=== PATIENT | female | born 2000 | race Caucasian/White ===

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

== ENCOUNTER 2018-09-01 16:44 | Emergency (ER) | payer OTHER ==
[2018-09-01 18:19] LABS: APPEARANCE, URINE HAZY (CLEAR); BACTERIA, URINE AUTO NEGATIVE (NEGATIVE); BILIRUBIN, URINE AUTO NEGATIVE (NEGATIVE); BLOOD, URINE BLOOD NEGATIVE (NEGATIVE); COLOR, URINE YELLOW (YELLOW); GLUCOSE, URINE (UA) AUTO NEGATIVE (NEGATIVE); KETONE, URINE AUTO NEGATIVE (NEGATIVE); LEUKOCYTE ESTERASE, URINE AUTO NEGATIVE (NEGATIVE); MUCUS, URINE SMALL (NEGATIVE); NITRITE, URINE AUTO NEGATIVE (NEGATIVE); PROTEIN, URINE AUTO NEGATIVE (NEGATIVE); RBC, URINE AUTO 3 /HPF (0-3); SPECIFIC GRAVITY URINE AUTO 1.021 (1.002-1.035); SQUAMOUS EPITHELIAL CELL UR AU 4 /HPF (0-6); UROBILINOGEN, URINE AUTO 0.2 mg/dL (0.0-2.0); WBC, URINE AUTO 1 /HPF (0-3)
[2018-09-01 18:51] LABS: CONTROL LINE UCG INT CTR LINE PRESENT; URINE PREG TEST NEGATIVE (NEGATIVE)
[2018-09-01] MEDS: NS 1,000 ML IV (19:00)
[2018-09-01] MEDS: KETOROLAC 30 MG/ML VIAL (J1885) IV (19:00)
[2018-09-01] MEDS: ONDANSETRON 4MG/2ML VIAL (J2405) IV (19:00)
[2018-09-01 19:01] LABS: BASO # 0.1 10^3/uL (0.0-0.2); BASO % 0.5 % (0.0-1.0); EOS # 0.3 10^3/uL (0.0-0.50); EOS % 2.7 % (0.0-3.0); HEMATOCRIT 42.2 % (36.0-47.0); HEMOGLOBIN 14.2 g/dl (12.0-15.5); IMMATURE GRANULOCYTE % 0.4 % (0-3.0); LYMPH # 2.7 10^3/uL (1.5-6.5); LYMPH % 27.5 % (24.0-44.0); MEAN CORPUSCULAR HEMOGLOBIN 28.7 pg (27.0-33.0); MEAN CORPUSCULAR HGB CONC 33.6 g/dl (32.0-36.5); MEAN CORPUSCULAR VOLUME 85.4 fl (80.0-96.0); MONO # 0.7 10^3/uL (0.0-0.8); MONO % 7.1 % (0.0-5.0); NEUTROPHILS % 61.8 % (36.0-66.0); RED BLOOD COUNT 4.94 10^6/uL (4.00-5.40); WHITE BLOOD COUNT 9.7 10^3/uL (4.0-10.0)
[2018-09-01 19:15] LABS: CONTROL LINE HCG INT CTR LINE PRESENT; HCG, SERUM QUALITATIVE NEGATIVE (NEGATIVE)
[2018-09-01 19:26] LABS: POS COUNT POS FLAG
[2018-09-01 19:28] LABS: ALBUMIN 3.8 GM/DL (3.2-5.2); ALBUMIN/GLOBULIN RATIO 1.15 (1.00-1.93); ALKALINE PHOSPHATASE 87 U/L (45-117); ALT/SGPT 47 U/L (12-78); ANION GAP 7 MEQ/L (8-16); AST/SGOT 25 U/L (7-37); BILIRUBIN,TOTAL 0.3 MG/DL (0.2-1.0); BLOOD UREA NITROGEN 12 MG/DL (7-18); CALCIUM LEVEL 9.2 MG/DL (8.5-10.1); CARBON DIOXIDE LEVEL 25 MEQ/L (21-32); CHLORIDE LEVEL 108 MEQ/L (98-107); CREATININE FOR GFR 0.67 MG/DL (0.55-1.30); GLUCOSE, FASTING 93 MG/DL (70-100); LIPASE 95 U/L (73-393); POTASSIUM SERUM 4.2 MEQ/L (3.5-5.1); SODIUM LEVEL 140 MEQ/L (136-145); TOTAL PROTEIN 7.1 GM/DL (6.4-8.2)
[2018-09-01] MEDS: metroNIDAZOLE (FLAGYL) 500 MG TAB PO (21:01)
[2018-09-01 22:02] LABS: CHLAMYDIA DNA AMPLIFICATION NEGATIVE (NEGATIVE); GC DNA AMPLIFICATION NEGATIVE (NEGATIVE)
== END 2018-09-01 21:04 | disposition home or self-care (01) ==
LOC: M ED 16:44
DX: N76.0 Acute vaginitis (principal); N83.201 Unspecified ovarian cyst, right side; N83.202 Unspecified ovarian cyst, left side; T83.32XA Displacement of intrauterine contraceptive device, initial encounter; X58.XXXA Exposure to other specified factors, initial encounter; Y92.89 Other specified places as the place of occurrence of the external cause; N94.10 Unspecified dyspareunia; I10 Essential (primary) hypertension; G93.5 Compression of brain; Z79.899 Other long term (current) drug therapy; Z88.1 Allergy status to other antibiotic agents; Z88.8 Allergy status to other drugs, medicaments and biological substances
CPT/HCPCS: J2405

== ENCOUNTER 2018-10-04 10:24 | Emergency (ER) | payer OTHER ==
[~2018-10-04] VITALS: Ht 165.1 cm; Wt 111.8 kg
[~2018-10-04 10:24] MED LIST changes: +FLAG500T PO; +HYDR12CA; +KETO10TAB PO; +LISI10TA4; +METO1TAB32 PO; -METO25TA74 PO; +MIRE1IUD
[2018-10-04 11:30] VITALS: BP 116/65
[2018-10-04] MEDS ORDERED: KETOROLAC 60 MG/2 ML VIAL (J1885) IM ONE (11:30)
[2018-10-04] MEDS ORDERED: METHOCARBAMOL 500 MG TAB PO ONE (11:30)
[2018-10-04] MEDS ORDERED: NAPR-885 PO (11:52)
[2018-10-04] MEDS ORDERED: ROBA500T PO (11:52)
--- NOTE | 2018-10-04 13:00 | REP ---
Lumbar spine series: Five views. History: Pain after fall. Comparison study: February 10, 2017. Findings: The patient has a lumbar peritoneal shunt catheter which remains in place unchanged and intact. Lumbar vertebral body heights are preserved. Alignment is normal. Pedicles and posterior elements are intact. There is straightening of the normal lumbar lordosis. No fracture or collapse is seen. Impression: No traumatic abnormality noted. Lumbar peritoneal shunt catheter remains in place unchanged and intact. Electronically Signed by Lorenzo Naranjo MD 10/04/2018 07:38 P
--- NOTE | 2018-10-04 15:00 | REP ---
THORACIC SPINE, THREE VIEWS: HISTORY: Fall. There is no acute fracture or subluxation. The intervertebral discs are normal in height. IMPRESSION:There is no acute fracture or subluxation. Electronically Signed by Micheal Sparks MD 10/04/2018 02:35 P
== END 2018-10-04 12:02 | disposition home or self-care (01) ==
LOC: M ED 10:24
DX: M54.9 Dorsalgia, unspecified (principal); W01.0XXA Fall on same level from slipping, tripping and stumbling without subsequent striking against object, initial encounter; Y92.019 Unspecified place in single-family (private) house as the place of occurrence of the external cause
CPT/HCPCS: 72072; 72110; 81025; 96372; 99284; J1885

== ENCOUNTER 2018-11-11 19:36 | Emergency (ER) | payer OTHER ==
[~2018-11-11] VITALS: Ht 165.1 cm; Wt 113.6 kg
[~2018-11-11 19:36] MED LIST changes: -DICY20TA PO; -DICY20TA11 PO; -HYDR12CA PO; -LISI10TA4 PO; -MACR100C43 PO; -MELO7.5T7; -MOBI4TAB PO; -REGL10TA6 PO; -TIZA-208 PO; -TIZANIDINE
[2018-11-11] MEDS ORDERED: MACR100C43 PO (19:45)
[2018-11-11] MEDS ORDERED: ONDANSETRON 4 MG ORAL DISINTEGRATING TAB (Q0162 PER 1MG) PO ONE ×2 (20:15→23:45)
[2018-11-11] MEDS ORDERED: NS 1,000 ML IV ONE (20:45)
[2018-11-11] MEDS ORDERED: ONDANSETRON 4MG/2ML VIAL (J2405) IV ONE (20:45)
[2018-11-11] MEDS: MORPHINE 4 MG/ML 1ML VIAL/SYRINGE (J2270) IV PRN ×2 (21:28→22:05)
[2018-11-11 21:29] LABS: BASO # 0.1 10^3/uL (0.0-0.2); BASO % 0.4 % (0.0-1.0); EOS # 0.1 10^3/uL (0.0-0.50); EOS % 0.7 % (0.0-3.0); LYMPH # 2.5 10^3/uL (1.5-6.5); LYMPH % 15.1 % (24.0-44.0); MEAN CORPUSCULAR HEMOGLOBIN 28.5 pg (27.0-33.0); MEAN CORPUSCULAR HGB CONC 34.1 g/dl (32.0-36.5); MEAN CORPUSCULAR VOLUME 83.7 fl (80.0-96.0); MONO # 1.2 10^3/uL (0.0-0.8); MONO % 7.1 % (0.0-5.0); NEUTROPHILS # 12.5 10^3/uL (1.8-7.7); NEUTROPHILS % 76.2 % (36.0-66.0); PLATELET COUNT, AUTOMATED 258 10^3/uL (150-450); RED BLOOD COUNT 5.26 10^6/uL (4.00-5.40); WHITE BLOOD COUNT 16.4 10^3/uL (4.0-10.0)
[2018-11-11 22:08] LABS: ALBUMIN 4.1 GM/DL (3.2-5.2); ALT/SGPT 33 U/L (12-78); BILIRUBIN,DIRECT 0.1 MG/DL (0.0-0.2); BILIRUBIN,TOTAL 0.6 MG/DL (0.2-1.0); BLOOD UREA NITROGEN 12 MG/DL (7-18); CALCIUM LEVEL 9.2 MG/DL (8.5-10.1); CARBON DIOXIDE LEVEL 21 MEQ/L (21-32); CHLORIDE LEVEL 106 MEQ/L (98-107); GLUCOSE, FASTING 99 MG/DL (70-100); LIPASE 57 U/L (73-393); POTASSIUM SERUM 4.2 MEQ/L (3.5-5.1); SODIUM LEVEL 140 MEQ/L (136-145); TOTAL PROTEIN 7.4 GM/DL (6.4-8.2)
[2018-11-11] MEDS ORDERED: ISOVUE-370 76% 100ML VIAL (Q9967) As Ordered ONE (22:11)
--- NOTE | 2018-11-11 23:12 | REPVR ---
EXAM: CT Abdomen and Pelvis With Contrast EXAM DATE/TIME: 11/11/2018 10:13 PM CLINICAL HISTORY: 18 years old, female; Pain; Abdominal pain; Generalized; Additional info: Lower abdominal pain TECHNIQUE: Axial computed tomography images of the abdomen and pelvis with intravenous contrast. All CT scans at this facility use at least one of these dose optimization techniques: automated exposure control; mA and/or kV adjustment per patient size (includes targeted exams where dose is matched to clinical indication); or iterative reconstruction. Coronal and sagittal reformatted images were created and reviewed. CONTRAST: Contrast Material: 100 ml of isovue 370; Contrast Route: iv COMPARISON: CT ABD PELVIS WITH CONTRAST 05/12/2016 11:05 AM FINDINGS: Tubes, catheters and devices: Spinal stimulator wire demonstrated in the lumbar intradural space. Lower thorax: No acute findings. ABDOMEN: Liver: There is a diffuse decrease in hepatic parenchymal density, consistent with fatty infiltration. Gallbladder and bile ducts: Normal. No calcified stones. No ductal dilation. Pancreas: Normal. No ductal dilation. Spleen: There is mild nonspecific splenomegaly. Adrenals: Bilateral adrenal hyperplasia. Kidneys and ureters: Normal. No hydronephrosis. Stomach and bowel: Normal. No obstruction. No mucosal thickening. Appendix: No evidence of appendicitis. PELVIS: Bladder: Unremarkable as visualized. Reproductive: Unremarkable as visualized. ABDOMEN and PELVIS: Intraperitoneal space: Free fluid in the cul-de-sac likely physiologic. Bones/joints: No acute fracture. No dislocation. Soft tissues: Unremarkable. Vasculature: Normal. No abdominal aortic aneurysm. Lymph nodes: Normal. No enlarged lymph nodes. IMPRESSION: 1. There is mild nonspecific splenomegaly. Spleen measures 14.5 cm. No focal abnormality. 2. There is a diffuse decrease in hepatic parenchymal density, consistent with fatty infiltration. 3. No acute findings. Electronically signed by: Johan Gardiner On 11/11/2018 23:11:43 PM
[2018-11-11] MEDS ORDERED: MORPHINE 4 MG/ML 1ML VIAL/SYRINGE (J2270) IV ONE (23:15)
[2018-11-11] MEDS ORDERED: OXYCODONE/APAP 5MG/325MG(BULK FOR ED) 1 TABLET PO ONE (23:45)
[2018-11-12 00:01] VITALS: BP 143/100
[2018-11-12] MEDS ORDERED: DICY20TA11 PO (17:33)
[2018-11-12] MEDS ORDERED: REGL10TA6 PO (17:33)
[2018-11-12] MEDS ORDERED: KETO10TAB PO (17:33)
== END 2018-11-12 00:06 | disposition home or self-care (01) ==
LOC: M ED 19:36
DX: M54.9 Dorsalgia, unspecified (principal); I10 Essential (primary) hypertension; G93.2 Benign intracranial hypertension; H47.11 Papilledema associated with increased intracranial pressure; Z79.899 Other long term (current) drug therapy; Z88.1 Allergy status to other antibiotic agents; Z88.0 Allergy status to penicillin; Z88.8 Allergy status to other drugs, medicaments and biological substances
CPT/HCPCS: 74177; 80048; 80076; 81001; 81025; 83690; 85025; 96374; 96375; 96376; 99284; J2270; J2405; Q0162; Q9967

== ENCOUNTER → 2018-11-11 | Outpatient (REF) | payer OTHER ==
[~2018-11-11] MED LIST changes: +DICY20TA PO; +DICY20TA11 PO; +HYDR12CA PO; +LISI10TA4 PO; +MACR100C43 PO; +MELO7.5T7; +MOBI4TAB PO; +NAPR-885 PO; +REGL10TA6 PO; +ROBA500T PO; +TIZA-208 PO; +TIZANIDINE
[2018-11-11 21:46] LABS: URINE PREG TEST NEGATIVE (NEGATIVE)
[2018-11-11 22:14] LABS: APPEARANCE, URINE CLOUDY (CLEAR); BACTERIA, URINE AUTO 1+ (NEGATIVE); BILIRUBIN, URINE AUTO NEGATIVE (NEGATIVE); BLOOD, URINE BLOOD NEGATIVE (NEGATIVE); COLOR, URINE YELLOW (YELLOW); GLUCOSE, URINE (UA) AUTO NEGATIVE (NEGATIVE); KETONE, URINE AUTO NEGATIVE (NEGATIVE); LEUKOCYTE ESTERASE, URINE AUTO NEGATIVE (NEGATIVE); MUCUS, URINE SMALL (NEGATIVE); NITRITE, URINE AUTO NEGATIVE (NEGATIVE); PROTEIN, URINE AUTO NEGATIVE (NEGATIVE); RBC, URINE AUTO 1 /HPF (0-3); SPECIFIC GRAVITY URINE AUTO 1.023 (1.002-1.035); SQUAMOUS EPITHELIAL CELL UR AU 21 /HPF (0-6); UROBILINOGEN, URINE AUTO 0.2 mg/dL (0.0-2.0); WBC, URINE AUTO 5 /HPF (0-3)
== END ==
LOC: M LAB REF 11:06
PROVIDERS: ATTEND Nurse Practitioner Family
DX: Z32.00 Encounter for pregnancy test, result unknown (principal); Z3A.00 Weeks of gestation of pregnancy not specified; N91.2 Amenorrhea, unspecified; N39.0 Urinary tract infection, site not specified

== ENCOUNTER 2018-11-12 14:33 | Emergency (ER) | payer OTHER ==
[~2018-11-12] VITALS: Ht 165.1 cm; Wt 113.6 kg
[~2018-11-12 14:33] MED LIST changes: +MACR100C43 PO
[2018-11-12] MEDS ORDERED: diphenhydrAMINE INJ 50MG/ML VIAL (J1200) IV STA (15:25)
[2018-11-12] MEDS ORDERED: NS 1,000 ML IV ONE (15:30)
[2018-11-12] MEDS ORDERED: METOCLOPRAMIDE INJ 10MG/2ML VIAL (J2765) IV ONE (15:30)
[2018-11-12] MEDS ORDERED: DICYCLOMINE INJ 20MG/2ML (J0500) IM ONE (15:30)
[2018-11-12] MEDS ORDERED: KETOROLAC 30 MG/ML VIAL (J1885) IV ONE (16:15)
[2018-11-12 16:20] LABS: BASO # 0.1 10^3/uL (0.0-0.2); BASO % 0.3 % (0.0-1.0); EOS % 0.1 % (0.0-3.0); HEMATOCRIT 44.2 % (36.0-47.0); HEMOGLOBIN 14.7 g/dl (12.0-15.5); LYMPH # 1.1 10^3/uL (1.5-6.5); LYMPH % 5.6 % (24.0-44.0); MEAN CORPUSCULAR HEMOGLOBIN 28.3 pg (27.0-33.0); MEAN CORPUSCULAR HGB CONC 33.3 g/dl (32.0-36.5); MEAN CORPUSCULAR VOLUME 85.2 fl (80.0-96.0); MONO # 0.2 10^3/uL (0.0-0.8); NEUTROPHILS # 18.3 10^3/uL (1.8-7.7); NEUTROPHILS % 92.6 % (36.0-66.0); PLATELET COUNT, AUTOMATED 228 10^3/uL (150-450); RED BLOOD COUNT 5.19 10^6/uL (4.00-5.40); WHITE BLOOD COUNT 19.8 10^3/uL (4.0-10.0)
[2018-11-12 17:11] LABS: ALBUMIN 3.9 GM/DL (3.2-5.2); ALT/SGPT 29 U/L (12-78); BILIRUBIN,DIRECT 0.5 MG/DL (0.0-0.2); BILIRUBIN,TOTAL 1.2 MG/DL (0.2-1.0); BLOOD UREA NITROGEN 8 MG/DL (7-18); CALCIUM LEVEL 8.9 MG/DL (8.5-10.1); CARBON DIOXIDE LEVEL 24 MEQ/L (21-32); CHLORIDE LEVEL 102 MEQ/L (98-107); CREATININE FOR GFR 0.86 MG/DL (0.55-1.30); GLUCOSE, FASTING 89 MG/DL (70-100); LIPASE 58 U/L (73-393); POTASSIUM SERUM 3.6 MEQ/L (3.5-5.1); SODIUM LEVEL 137 MEQ/L (136-145); TOTAL PROTEIN 7.2 GM/DL (6.4-8.2)
[2018-11-12] MEDS ORDERED: KETO10TAB PO (17:33)
[2018-11-12] MEDS ORDERED: DICY20TA11 PO (17:33)
[2018-11-12] MEDS ORDERED: REGL10TA6 PO (17:33)
[2018-11-12 17:39] VITALS: BP 124/73
== END 2018-11-12 17:46 | disposition home or self-care (01) ==
LOC: M ED 14:33
DX: K52.9 Noninfective gastroenteritis and colitis, unspecified (principal); N39.0 Urinary tract infection, site not specified; I10 Essential (primary) hypertension; G93.2 Benign intracranial hypertension; Z79.899 Other long term (current) drug therapy; Z88.0 Allergy status to penicillin; Z88.1 Allergy status to other antibiotic agents; Z88.8 Allergy status to other drugs, medicaments and biological substances
CPT/HCPCS: 80048; 80076; 81001; 83605; 83690; 85025; 87040; 87077; 87088; 87186; 96361; 96372; 96374; 96375; 99284; J0500; J1200; J1885; J2765

== ENCOUNTER 2018-11-14 19:04 | Emergency (ER) | payer OTHER ==
[~2018-11-14] VITALS: Ht 165.1 cm; Wt 112.7 kg
[~2018-11-14 19:04] MED LIST changes: +DICY20TA11 PO; +REGL10TA6 PO
[2018-11-14] MEDS ORDERED: MELO7.5T7 (19:09)
[2018-11-14] MEDS ORDERED: TIZANIDINE (19:09)
[2018-11-14] MEDS ORDERED: NS 1,000 ML IV ONE (20:00)
[2018-11-14] MEDS ORDERED: ONDANSETRON 4MG/2ML VIAL (J2405) IV ONE (20:00)
[2018-11-14 20:20] LABS: BASO # 0.1 10^3/uL (0.0-0.2); BASO % 0.4 % (0.0-1.0); EOS # 0.1 10^3/uL (0.0-0.50); EOS % 0.9 % (0.0-3.0); HEMATOCRIT 40.9 % (36.0-47.0); HEMOGLOBIN 13.7 g/dl (12.0-15.5); LYMPH # 1.3 10^3/uL (1.5-6.5); LYMPH % 9.2 % (24.0-44.0); MEAN CORPUSCULAR HEMOGLOBIN 28.2 pg (27.0-33.0); MEAN CORPUSCULAR HGB CONC 33.5 g/dl (32.0-36.5); MEAN CORPUSCULAR VOLUME 84.3 fl (80.0-96.0); MONO # 1.7 10^3/uL (0.0-0.8); MONO % 12.6 % (0.0-5.0); NEUTROPHILS # 10.3 10^3/uL (1.8-7.7); NEUTROPHILS % 76.3 % (36.0-66.0); PLATELET COUNT, AUTOMATED 164 10^3/uL (150-450); RED BLOOD COUNT 4.85 10^6/uL (4.00-5.40); WHITE BLOOD COUNT 13.5 10^3/uL (4.0-10.0)
[2018-11-14] MEDS: MORPHINE 4 MG/ML 1ML VIAL/SYRINGE (J2270) IV PRN ×2 (20:23→23:51)
[2018-11-14 20:50] LABS: HCG, SERUM QUALITATIVE NEGATIVE (NEGATIVE)
[2018-11-14 20:51] LABS: MONO SCRN NEGATIVE (NEGATIVE)
[2018-11-14 21:01] LABS: ALBUMIN 3.3 GM/DL (3.2-5.2); ALT/SGPT 20 U/L (12-78); BILIRUBIN,DIRECT 0.6 MG/DL (0.0-0.2); BILIRUBIN,TOTAL 1.1 MG/DL (0.2-1.0); BLOOD UREA NITROGEN 15 MG/DL (7-18); CALCIUM LEVEL 8.7 MG/DL (8.5-10.1); CARBON DIOXIDE LEVEL 26 MEQ/L (21-32); CHLORIDE LEVEL 100 MEQ/L (98-107); CREATININE FOR GFR 0.88 MG/DL (0.55-1.30); GLUCOSE, FASTING 94 MG/DL (70-100); LIPASE 41 U/L (73-393); POTASSIUM SERUM 3.3 MEQ/L (3.5-5.1); SODIUM LEVEL 137 MEQ/L (136-145); TOTAL PROTEIN 6.8 GM/DL (6.4-8.2)
--- NOTE | 2018-11-14 21:12 | REPVR ---
EXAM: US Abdomen Limited, Right Upper Quadrant EXAM DATE/TIME: 11/14/2018 8:40 PM CLINICAL HISTORY: 18 years old, female; Pain; Abdominal pain; Generalized; Additional info: Ruq pain TECHNIQUE: Real-time ultrasound of the abdomen with image documentation. Examination was focused on the right upper quadrant. COMPARISON: CT ABD/PEL W/IV CONTRAST ONLY 11/11/2018 10:04 PM FINDINGS: Liver: There is uniform echogenicity of the liver. Gallbladder: Normal appearing gallbladder. Common bile duct: The common bile duct measures 4 mm. Pancreas: The pancreas is obscured by bowel gas. Right kidney: Right kidney measures 10.5 CM in length with no evidence of hydronephrosis. Bowel: The previous CT of 11/11/2018 was reviewed and it is noted that the cecum is in the right lower quadrant. The appendix extends superiorly and along the lateral margin of the cecum with the tip near the liver edge. The appendix is enlarged measuring 1.8 CM. There is thickening of the wall of the appendix and subtle hazy increased density along the margins and all consistent with changes of appendicitis. Intraperitoneal space: There is also noted to be a moderate amount of free fluid in the pelvis. IMPRESSION: 1. The previous CT examination of 11/11/2028 demonstrates appendicitis. The appendix is thickened and measures 1.8 CM in thickness and extends superiorly from the cecum along the lateral cecal margin. There is some inflammation surrounding the thickened appendix and the tip of the appendix is near the liver edge. 2. Moderate free fluid within the pelvis. Electronically signed by: Jossue Wright On 11/14/2018 21:12:25 PM
[2018-11-14] MEDS ORDERED: ISOVUE-370 76% 100ML VIAL (Q9967) As Ordered ONE (21:22)
[2018-11-14] MEDS ORDERED: metroNIDAZOLE 500 MG in APPROPRIATE DILUENT 1 EA IV ONE (22:15)
[2018-11-14] MEDS ORDERED: CIPROFLOXACIN 400 MG in APPROPRIATE DILUENT 1 EA IV ONE (22:15)
--- NOTE | 2018-11-14 22:32 | REPVR ---
EXAM: CT Abdomen and Pelvis With Contrast EXAM DATE/TIME: 11/14/2018 9:58 PM CLINICAL HISTORY: 18 years old, female; Pain; Abdominal pain; Prior surgery; Additional info: Cough, chest pain, abd pain TECHNIQUE: Axial computed tomography images of the abdomen and pelvis with intravenous contrast. All CT scans at this facility use at least one of these dose optimization techniques: automated exposure control; mA and/or kV adjustment per patient size (includes targeted exams where dose is matched to clinical indication); or iterative reconstruction. Coronal and sagittal reformatted images were created and reviewed. CONTRAST: Contrast Material: 100 ml of ISOVUE 370; Contrast Route: IV COMPARISON: CT ABD/PEL W/IV CONTRAST ONLY 11/11/2018 10:04 PM FINDINGS: Lower thorax: Clear appearing lung bases. Normal size heart. No pericardial effusion. ABDOMEN: Liver: Normal liver. Gallbladder and bile ducts: Normal gallbladder. Pancreas: Normal pancreas. Spleen: Normal spleen. Adrenals: Normal adrenal glands. Kidneys and ureters: There is opacification there is opacification of the right and left kidney. There is opacification of the ureters. Appendix: The appendix is severely thickened with severe inflammation and some fluid along the margins. This is consistent with appendicitis and leaking or perforated appendix. There is severe distention of small bowel in right abdomen with air-fluid levels which has developed since the previous CT. THIS is probably localized ileus and enteritis secondary to leaking or perforated appendicitis. PELVIS: Bladder: There is contrast in the urinary bladder. Reproductive: Normal appearing uterus. 2.5 CM cyst right ovary. ABDOMEN and PELVIS: Intraperitoneal space: There is no evidence of pneumoperitoneum. There is now a large amount of fluid within the pelvis. Inflammation, edema and fluid extends along the right paracolic space to the level of the pelvis where there is the large amount of fluid collecting. Bones/joints: No acute fracture. No dislocation. Soft tissues: Unremarkable. Vasculature: There is opacification of the aorta which is normal in size. Lymph nodes: There is no evidence of lymphadenopathy. IMPRESSION: 1. Lateral to the cecum and right colon is a enlarged appendix with surrounding inflammation and fluid consistent with a leaking or ruptured appendix. The inflammation extends along the right colon into the right paracolic space with fluid extending into the pelvis. There is a large amount of free fluid now in the pelvis. 2. Interval development of severe distention of loops of small bowel right abdomen with air-fluid levels probably the result of ileus and enteritis associated with appendicitis and leaking appendix. Electronically signed by: Jossue Wright On 11/14/2018 22:32:14 PM
--- NOTE | 2018-11-14 22:36 | REPVR ---
EXAM: CT Angiography Chest With Contrast EXAM DATE/TIME: 11/14/2018 9:58 PM CLINICAL HISTORY: 18 years old, female; Pain; Chest pain; Additional info: Cough, chest pain, abd pain TECHNIQUE: Axial computed tomographic angiography images of the chest with intravenous contrast using CT angiography protocol. All CT scans at this facility use at least one of these dose optimization techniques: automated exposure control; mA and/or kV adjustment per patient size (includes targeted exams where dose is matched to clinical indication); or iterative reconstruction. Coronal and sagittal reformatted images were created and reviewed. MIP reconstructed images were created and reviewed. CONTRAST: Contrast Material: 100 ml of ISOVUE 37-; Contrast Route: IV COMPARISON: CT ANGIO CHEST 03/18/2016 1:34 PM FINDINGS: Pulmonary arteries: There is opacification of the pulmonary arteries with no evidence of pulmonary embolus. Aorta: There is opacification of the aorta which appears intact. Lungs: Clear lungs. Pleural space: No evidence of pneumothorax. No evidence of pleural effusion. Heart: Normal. No cardiomegaly. No pericardial effusion. Lymph nodes: There is no evidence of lymphadenopathy. Bones/joints: Unremarkable. No acute fracture. Soft tissues: Unremarkable. IMPRESSION: 1. No evidence of pulmonary embolus. 2. Clear lungs. Electronically signed by: Jossue Wright On 11/14/2018 22:35:41 PM
[2018-11-14] MEDS ORDERED: KETO10TAB PO (22:41)
[2018-11-14] MEDS ORDERED: HYDR12CA PO (22:41)
[2018-11-14] MEDS ORDERED: NAPR-885 PO (22:41)
[2018-11-14] MEDS ORDERED: DICY20TA PO (22:41)
[2018-11-14] MEDS ORDERED: MOBI4TAB PO (22:41)
[2018-11-14] MEDS ORDERED: LISI10TA4 PO (22:41)
[2018-11-14] MEDS ORDERED: MACR100C43 PO (22:41)
[2018-11-14] MEDS ORDERED: TIZA-208 PO (22:41)
[2018-11-14] MEDS ORDERED: REGL10TA6 PO (22:41)
[2018-11-15] MEDS ORDERED: ONDANSETRON 4MG/2ML VIAL (J2405) IV ONE (02:30)
[2018-11-15] MEDS ORDERED: MORPHINE 4 MG/ML 1ML VIAL/SYRINGE (J2270) IV ONE (02:30)
[2018-11-15 02:59] VITALS: BP 114/63
--- NOTE | 2018-11-15 20:47 | ECGEPIP ---
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
== END 2018-11-15 03:00 | disposition short-term general hospital (02) ==
LOC: M ED 19:04
DX: K35.80 Unspecified acute appendicitis (principal); Z98.2 Presence of cerebrospinal fluid drainage device; R00.0 Tachycardia, unspecified; G93.2 Benign intracranial hypertension; I10 Essential (primary) hypertension; M54.5 Low back pain; Z88.0 Allergy status to penicillin; Z88.1 Allergy status to other antibiotic agents; Z88.8 Allergy status to other drugs, medicaments and biological substances; Z79.2 Long term (current) use of antibiotics; Z79.899 Other long term (current) drug therapy
CPT/HCPCS: 36415; 71275; 74177; 76705; 80048; 80076; 81001; 83605; 83690; 84703; 85025; 86308; 87040; 87086; 93005; 93041; 96374; 96375; 96376; 99285; J0744; J2270; J2405; Q9967

== ENCOUNTER → 2018-12-11 | Outpatient (REF) | payer OTHER ==
[~2018-12-11] MED LIST changes: +DICY20TA PO; +HYDR12CA PO; +LISI10TA4 PO; +MELO7.5T7; +MOBI4TAB PO; +TIZA-208 PO; +TIZANIDINE
[2018-12-11 17:21] LABS: HEMATOCRIT 38.1 % (36.0-47.0); HEMOGLOBIN 11.9 g/dl (12.0-15.5); MEAN CORPUSCULAR HEMOGLOBIN 27.7 pg (27.0-33.0); MEAN CORPUSCULAR HGB CONC 31.2 g/dl (32.0-36.5); MEAN CORPUSCULAR VOLUME 88.8 fl (80.0-96.0); PLATELET COUNT, AUTOMATED 226 10^3/uL (150-450); RED BLOOD COUNT 4.29 10^6/uL (4.00-5.40); WHITE BLOOD COUNT 6.5 10^3/uL (4.0-10.0)
[2018-12-11 17:40] LABS: BLOOD UREA NITROGEN 12 MG/DL (7-18); C REACTIVE PROTEIN QUANTITATIV 1.07 MG/DL (0.00-0.30); CALCIUM LEVEL 8.7 MG/DL (8.5-10.1); CARBON DIOXIDE LEVEL 21 MEQ/L (21-32); CHLORIDE LEVEL 112 MEQ/L (98-107); CREATININE FOR GFR 0.68 MG/DL (0.55-1.30); GLUCOSE, FASTING 68 MG/DL (70-100); POTASSIUM SERUM 4.1 MEQ/L (3.5-5.1); SODIUM LEVEL 143 MEQ/L (136-145)
== END ==
LOC: M LAB REF 16:19
PROVIDERS: ATTEND Family Medicine
DX: K35.20 Acute appendicitis with generalized peritonitis, without abscess (principal)

== ENCOUNTER 2018-12-24 13:50 | Emergency (ER) | payer OTHER ==
[~2018-12-24] VITALS: Ht 165.1 cm; Wt 104.5 kg
[~2018-12-24 13:50] MED LIST changes: -TIZA-208 PO; +TIZA4TAB4 PO
[2018-12-24] MEDS ORDERED: ACET500C4 (13:58)
[2018-12-24] MEDS ORDERED: NS 1,000 ML IV ONE (14:30)
[2018-12-24] MEDS ORDERED: ONDANSETRON 4MG/2ML VIAL (J2405) IV ONE (14:45)
[2018-12-24] MEDS ORDERED: HYDROMORPHONE HCL 0.5 MG/ 0.5 ML SYRINGE (J1170 PER 1) IV PRN (14:45)
[2018-12-24 14:50] LABS: BASO # 0.1 10^3/uL (0.0-0.2); BASO % 0.7 % (0.0-1.0); EOS # 0.2 10^3/uL (0.0-0.50); EOS % 2.3 % (0.0-3.0); HEMATOCRIT 39.4 % (36.0-47.0); HEMOGLOBIN 12.8 g/dl (12.0-15.5); LYMPH # 2.4 10^3/uL (1.5-6.5); LYMPH % 28.6 % (24.0-44.0); MEAN CORPUSCULAR HGB CONC 32.5 g/dl (32.0-36.5); MEAN CORPUSCULAR VOLUME 86.2 fl (80.0-96.0); MONO # 0.6 10^3/uL (0.0-0.8); MONO % 7.7 % (0.0-5.0); PLATELET COUNT, AUTOMATED 219 10^3/uL (150-450); RED BLOOD COUNT 4.57 10^6/uL (4.00-5.40); WHITE BLOOD COUNT 8.3 10^3/uL (4.0-10.0)
[2018-12-24 15:13] LABS: BLOOD UREA NITROGEN 13 MG/DL (7-18); CALCIUM LEVEL 8.6 MG/DL (8.5-10.1); CARBON DIOXIDE LEVEL 21 MEQ/L (21-32); CHLORIDE LEVEL 109 MEQ/L (98-107); CREATININE FOR GFR 0.74 MG/DL (0.55-1.30); GLUCOSE, FASTING 100 MG/DL (70-100); POTASSIUM SERUM 3.5 MEQ/L (3.5-5.1); SODIUM LEVEL 139 MEQ/L (136-145)
[2018-12-24] MEDS ORDERED: PROHANCE 279.3MG/ML 15ML VIAL (A9576) As Ordered ONE (15:34)
[2018-12-24] MEDS ORDERED: PROHANCE 279.3MG/ML 5ML VIAL (A9576) As Ordered ONE (15:34)
[2018-12-24 15:36] LABS: HCG, SERUM QUALITATIVE NEGATIVE (NEGATIVE)
[2018-12-24 16:38] LABS: C REACTIVE PROTEIN QUANTITATIV 0.54 MG/DL (0.00-0.30)
--- NOTE | 2018-12-24 16:40 | REPVR ---
EXAM: MR Lumbar Spine Without and With Contrast. EXAM DATE/TIME: 12/24/2018 2:34 PM CLINICAL HISTORY: 18 years old, female; Signs and symptoms; Weakness; Prior surgery; Surgery date: 1-6 months; Surgery type: Sp shunt removed 11/15; Patient HX: HX shunt removal 11/15, wound never healed. Now with pain and weakness; Additional info: Pain/parasthesia TECHNIQUE: Imaging protocol: Multiplanar magnetic resonance images of the lumbar spine without and with intravenous contrast. Contrast material: prohance Contrast volume: 20 ml Contrast route: iv COMPARISON: CR Spine. Lumbosacral, complete 10/04/2018 10:58 AM FINDINGS: Vertebrae: Unremarkable. L1-L2: No significant disc disease. No stenosis. L2-L3: No significant disc disease. No stenosis. L3-L4: No significant disc disease. No stenosis. L4-L5: No significant disc disease. No stenosis. L5-S1: No significant disc disease. No stenosis. Spinal cord: Normal signal. No cord compression. Soft tissues: T1 dark T2 bright fluid collection measuring 1.7 x 3.1 x 2.4 cm. demonstrated in the posterior paraspinal soft tissues at the L2-3 level. Thin fluid track extends from the fluid collection in the posterior paraspinal soft tissues to the epidural space at L2-3 also demonstrate peripheral enhancement . Soft tissue surrounding the fluid collection demonstrates enhancement on post gadolinium images. IMPRESSION: There is a fluid collection measuring 1.7 x 3.1 x 2.4 cm. demonstrated in the posterior paraspinal soft tissues at the L2-3 level. Thin fluid track extends from the dominant fluid collection in the posterior paraspinal soft tissues to the epidural space at L2-3 also demonstrate peripheral enhancement. Finding may represent an epidural fistula. Infection including epidural abscess not excluded. Electronically signed by: Johan Gardiner On 12/24/2018 16:40:42 PM
[2018-12-24 18:07] LABS: ERYTHROCYTE SEDIMENTATION RATE 12 mm/hr (0-20)
[2018-12-24 18:30] VITALS: BP 124/76
== END 2018-12-24 18:31 | disposition short-term general hospital (02) ==
LOC: M ED 13:50
DX: G06.2 Extradural and subdural abscess, unspecified (principal); I10 Essential (primary) hypertension; G93.2 Benign intracranial hypertension; Z98.2 Presence of cerebrospinal fluid drainage device; Z79.899 Other long term (current) drug therapy; Z88.0 Allergy status to penicillin; Z88.1 Allergy status to other antibiotic agents; Z88.8 Allergy status to other drugs, medicaments and biological substances; F12.20 Cannabis dependence, uncomplicated
CPT/HCPCS: 72158; 80048; 84703; 85025; 85652; 86140; 87040; 93041; 94760; 96361; 96374; 96375; 99284; A9576; J1170; J2405

== ENCOUNTER 2019-01-21 23:53 | Emergency (ER) | payer OTHER ==
[~2019-01-21] VITALS: Ht 165.1 cm; Wt 109.1 kg
[~2019-01-21 23:53] MED LIST changes: +ACET500C4
[2019-01-22] MEDS ORDERED: ACET50CA PO (00:03)
--- NOTE | 2019-01-22 01:58 | REPVR ---
EXAM: CT Head Without Contrast EXAM DATE/TIME: 01/22/2019 1:13 AM CLINICAL HISTORY: 18 years old, female; Pain; Headache; Additional info: RAMOS fever TECHNIQUE: Imaging protocol: Axial computed tomography images of the head/brain without contrast. Radiation optimization: All CT scans at this facility use at least one of these dose optimization techniques: automated exposure control; mA and/or kV adjustment per patient size (includes targeted exams where dose is matched to clinical indication); or iterative reconstruction. COMPARISON: CT Head without contrast 02/19/2016 1:17 AM FINDINGS: Brain: No intracranial mass, mass effect or midline shift. No acute intracranial hemorrhage. No CT evidence of acute cortical infarct. Ventricles: Ventricles, cisterns, and sulci are normal in size for age. Bones/joints: No calvarial fracture or destructive process. Sinuses: Imaged paranasal sinuses are clear. Mastoid air cells: Mastoid air cells are normally aerated. Orbits: Imaged orbits are unremarkable. Soft tissues: No focal extracranial soft tissue swelling. IMPRESSION: No acute or concerning focal intracranial abnormality. Electronically signed by: Mckinley Llanos On 01/22/2019 01:58:01 AM
[2019-01-22 02:21] LABS: BASO % 0.3 % (0.0-1.0); EOS # 0.3 10^3/uL (0.0-0.50); EOS % 2.2 % (0.0-3.0); HEMATOCRIT 34.4 % (36.0-47.0); HEMOGLOBIN 11.2 g/dl (12.0-15.5); LYMPH # 2.1 10^3/uL (1.5-6.5); LYMPH % 18.2 % (24.0-44.0); MEAN CORPUSCULAR HEMOGLOBIN 28.1 pg (27.0-33.0); MEAN CORPUSCULAR HGB CONC 32.6 g/dl (32.0-36.5); MEAN CORPUSCULAR VOLUME 86.2 fl (80.0-96.0); MONO # 1.3 10^3/uL (0.0-0.8); MONO % 10.8 % (0.0-5.0); NEUTROPHILS # 7.9 10^3/uL (1.8-7.7); PLATELET COUNT, AUTOMATED 254 10^3/uL (150-450); RED BLOOD COUNT 3.99 10^6/uL (4.00-5.40); WHITE BLOOD COUNT 11.6 10^3/uL (4.0-10.0)
[2019-01-22 02:43] LABS: BLOOD UREA NITROGEN 7 MG/DL (7-18); CALCIUM LEVEL 8.2 MG/DL (8.5-10.1); CARBON DIOXIDE LEVEL 21 MEQ/L (21-32); CHLORIDE LEVEL 113 MEQ/L (98-107); CREATININE FOR GFR 0.58 MG/DL (0.55-1.30); GLUCOSE, FASTING 92 MG/DL (70-100); POTASSIUM SERUM 3.6 MEQ/L (3.5-5.1); SODIUM LEVEL 140 MEQ/L (136-145)
[2019-01-22] MEDS ORDERED: diphenhydrAMINE INJ 50MG/ML VIAL (J1200) IV STA (02:43)
[2019-01-22] MEDS ORDERED: MORPHINE 2 MG/ML 1ML SYRINGE (J2270) IV ONE (02:45)
[2019-01-22] MEDS ORDERED: NS 500 ML IV ONE (02:45)
[2019-01-22] MEDS ORDERED: MEROPENEM INJ 1 GM in APPROPRIATE DILUENT 1 EA IV ONE (02:45)
[2019-01-22] MEDS ORDERED: VANCOMYCIN HCL 1,000 MG, VIAL MATE ADAPTER 1 EACH in D5W 250 ML IV ONE (02:45)
[2019-01-22] MEDS ORDERED: ONDANSETRON 4MG/2ML VIAL (J2405) As Ordered ONE (03:08)
[2019-01-22] MEDS ORDERED: ONDANSETRON 4MG/2ML VIAL (J2405) IV ONE (03:15)
[2019-01-22] MEDS ORDERED: ACETAMINOPHEN TAB 650MG DOSE (2X325MG) PO ONE (08:00)
[2019-01-22] MEDS ORDERED: diphenhydrAMINE INJ 50MG/ML VIAL (J1200) IV ONE (10:00)
[2019-01-22] MEDS ORDERED: NS 1,000 ML IV SCH (10:17)
--- NOTE | 2019-01-22 10:21 | REP ---
EMERGENCY MRI LUMBAR SPINE WITHOUT CONTRAST: HISTORY: Evaluate postoperative infection. Apparently, the patient is status post removal of infected lumbar peritoneal shunt. Comparison MRI study is from December 24, 2018. In the interval since that prior study, the patient reports a incision and drainage procedure. TECHNIQUE: Sagittal and axial T1- and T2-weighted scans are acquired in the usual fashion with and without fat saturation. Sequences include spin echo, turbo spin echo, and STIR imaging sequences. MRI FINDINGS: There is a large multi-septate appearing thick-walled fluid collection in the posterior paraspinal soft tissues extending and ballooning outward from the interspinous space at L2-3. It measures 7.9 cm in greatest dorsal to ventral dimension x 10.5 cm craniocaudal x 7.8 cm medial to lateral. Ventrally, it abuts but does not compress the dorsal dura at the L2-3 level. There is no evidence of cauda equina compression. Ventrally, the lumbar vertebral body heights are preserved and alignment is normal. Cortical and medullary bone signal intensity is normal. The tip of the conus medullaris terminates at L1. No intraspinal lesion is appreciated. The caudal half of the spinous process at L2 is eroded and the inferior portion of the lamina on the left at L2 appears eroded. These changes are compatible with osteomyelitis. The fluid collection is much larger than it was in December 24, 2018 and the bony changes are new. IMPRESSION: There is a large dorsal paraspinal fluid collection with internal septations, a irregularly thickened wall, and associated bony erosive changes involving the posterior elements of L2 consistent with abscess with osteomyelitis. There is no evidence of thecal sac compression at this point. Changes have progressed considerably since December 24, 2018. The dimensions of the fluid collection are 7.9 x 10.5 x 7.8 cm. Electronically Signed by Lorenzo Naranjo MD 01/22/2019 11:43 A
[2019-01-22 11:33] VITALS: BP 102/55
== END 2019-01-22 11:37 | disposition short-term general hospital (02) ==
LOC: M ED 23:53
DX: M46.20 Osteomyelitis of vertebra, site unspecified (principal); G93.2 Benign intracranial hypertension; Z88.0 Allergy status to penicillin; Z88.1 Allergy status to other antibiotic agents
CPT/HCPCS: 70450; 72148; 80048; 85025; 87040; 96374; 96375; 96376; 99285; J1200; J2185; J2270; J2405; J3370

== ENCOUNTER → 2019-01-30 | Outpatient (REF) | payer OTHER ==
[~2019-01-30] MED LIST changes: +ACET50CA PO
[2019-01-30 16:54] LABS: BASO # 0.1 10^3/uL (0.0-0.2); EOS # 0.2 10^3/uL (0.0-0.50); EOS % 1.7 % (0.0-3.0); HEMATOCRIT 38.4 % (36.0-47.0); HEMOGLOBIN 12.2 g/dl (12.0-15.5); LYMPH # 2.6 10^3/uL (1.5-6.5); LYMPH % 25.3 % (24.0-44.0); MEAN CORPUSCULAR HEMOGLOBIN 27.1 pg (27.0-33.0); MEAN CORPUSCULAR HGB CONC 31.8 g/dl (32.0-36.5); MEAN CORPUSCULAR VOLUME 85.1 fl (80.0-96.0); MONO # 0.9 10^3/uL (0.0-0.8); MONO % 9.1 % (0.0-5.0); NEUTROPHILS # 6.1 10^3/uL (1.8-7.7); NEUTROPHILS % 59.2 % (36.0-66.0); PLATELET COUNT, AUTOMATED 372 10^3/uL (150-450); RED BLOOD COUNT 4.51 10^6/uL (4.00-5.40); WHITE BLOOD COUNT 10.3 10^3/uL (4.0-10.0)
[2019-01-30 17:26] LABS: ERYTHROCYTE SEDIMENTATION RATE 30 mm/hr (0-20)
[2019-01-30 17:31] LABS: ALBUMIN 3.4 GM/DL (3.2-5.2); ALT/SGPT 20 U/L (12-78); BILIRUBIN,TOTAL 0.2 MG/DL (0.2-1.0); BLOOD UREA NITROGEN 9 MG/DL (7-18); C REACTIVE PROTEIN QUANTITATIV 0.78 MG/DL (0.00-0.30); CALCIUM LEVEL 8.5 MG/DL (8.5-10.1); CARBON DIOXIDE LEVEL 20 MEQ/L (21-32); CHLORIDE LEVEL 112 MEQ/L (98-107); CREATININE FOR GFR 0.63 MG/DL (0.55-1.30); GLUCOSE, FASTING 69 MG/DL (70-100); SODIUM LEVEL 141 MEQ/L (136-145)
== END ==
LOC: M LAB REF 16:29
PROVIDERS: ATTEND Internal Medicine Infectious Disease
DX: G06.2 Extradural and subdural abscess, unspecified (principal); Z79.2 Long term (current) use of antibiotics

== ENCOUNTER → 2019-02-05 | Outpatient (REF) | payer OTHER ==
[2019-02-05 18:27] LABS: BASO # 0.1 10^3/uL (0.0-0.2); BASO % 1.4 % (0.0-1.0); EOS # 0.2 10^3/uL (0.0-0.50); EOS % 1.8 % (0.0-3.0); HEMATOCRIT 38.3 % (36.0-47.0); HEMOGLOBIN 12.3 g/dl (12.0-15.5); LYMPH # 2.6 10^3/uL (1.5-6.5); LYMPH % 29.2 % (24.0-44.0); MEAN CORPUSCULAR HEMOGLOBIN 27.6 pg (27.0-33.0); MEAN CORPUSCULAR HGB CONC 32.1 g/dl (32.0-36.5); MEAN CORPUSCULAR VOLUME 85.9 fl (80.0-96.0); MONO # 0.7 10^3/uL (0.0-0.8); MONO % 7.7 % (0.0-5.0); NEUTROPHILS # 5.2 10^3/uL (1.8-7.7); NEUTROPHILS % 58.8 % (36.0-66.0); PLATELET COUNT, AUTOMATED 313 10^3/uL (150-450); RED BLOOD COUNT 4.46 10^6/uL (4.00-5.40); WHITE BLOOD COUNT 8.9 10^3/uL (4.0-10.0)
[2019-02-05 18:49] LABS: ERYTHROCYTE SEDIMENTATION RATE 17 mm/hr (0-20)
[2019-02-05 19:51] LABS: ALBUMIN 3.5 GM/DL (3.2-5.2); ALT/SGPT 51 U/L (12-78); BILIRUBIN,TOTAL 0.3 MG/DL (0.2-1.0); BLOOD UREA NITROGEN 8 MG/DL (7-18); C REACTIVE PROTEIN QUANTITATIV < 0.30 MG/DL (0.00-0.30); CARBON DIOXIDE LEVEL 20 MEQ/L (21-32); CHLORIDE LEVEL 113 MEQ/L (98-107); CREATININE FOR GFR 0.61 MG/DL (0.55-1.30); GLUCOSE, FASTING 74 MG/DL (70-100); POTASSIUM SERUM 3.8 MEQ/L (3.5-5.1); SODIUM LEVEL 141 MEQ/L (136-145); TOTAL PROTEIN 6.3 GM/DL (6.4-8.2)
== END ==
LOC: M LAB REF 17:03
PROVIDERS: ATTEND Internal Medicine Infectious Disease
DX: G06.2 Extradural and subdural abscess, unspecified (principal); Z79.2 Long term (current) use of antibiotics

== ENCOUNTER 2019-02-19 15:56 | Emergency (ER) | payer OTHER ==
[~2019-02-19] VITALS: Ht 165.1 cm; Wt 109.9 kg
[2019-02-19] MEDS ORDERED: [UNRECOGNIZED DRUG - CODE] IV (17:48)
[2019-02-19] MEDS ORDERED: ALTEPLASE 2 MG/2 ML VIAL (J2997 PER 1MG) XX ONE (18:30)
[2019-02-19 19:16] LABS: BASO # 0.1 10^3/uL (0.0-0.2); BASO % 0.8 % (0.0-1.0); EOS # 0.9 10^3/uL (0.0-0.50); EOS % 9.2 % (0.0-3.0); HEMATOCRIT 40.9 % (36.0-47.0); HEMOGLOBIN 13.5 g/dl (12.0-15.5); LYMPH # 2.1 10^3/uL (1.5-6.5); LYMPH % 20.8 % (24.0-44.0); MEAN CORPUSCULAR HEMOGLOBIN 28.5 pg (27.0-33.0); MEAN CORPUSCULAR VOLUME 86.5 fl (80.0-96.0); MONO % 9.5 % (0.0-5.0); NEUTROPHILS # 5.9 10^3/uL (1.8-7.7); NEUTROPHILS % 59.2 % (36.0-66.0); PLATELET COUNT, AUTOMATED 160 10^3/uL (150-450); RED BLOOD COUNT 4.73 10^6/uL (4.00-5.40)
[2019-02-19 19:38] LABS: BLOOD UREA NITROGEN 11 MG/DL (7-18); CALCIUM LEVEL 8.2 MG/DL (8.5-10.1); CARBON DIOXIDE LEVEL 18 MEQ/L (21-32); CHLORIDE LEVEL 115 MEQ/L (98-107); CREATININE FOR GFR 0.73 MG/DL (0.55-1.30); GLUCOSE, FASTING 86 MG/DL (70-100); POTASSIUM SERUM 3.6 MEQ/L (3.5-5.1); SODIUM LEVEL 141 MEQ/L (136-145)
--- NOTE | 2019-02-19 20:27 | REPVR ---
EXAM: US Duplex Left Upper Extremity Veins, Limited EXAM DATE/TIME: 02/19/2019 6:45 PM CLINICAL HISTORY: 18 years old, female; Pain; Arn, upper; Left; Patient HX: PT has picc line; Additional info: Left upper arm swelling/pain; R/O dvt TECHNIQUE: Imaging protocol: Real-time Duplex ultrasound of the Left Upper Extremity with 2-D costello scale, color Doppler flow and spectral waveform analysis. Limited exam focused on the left upper extremity veins. COMPARISON: No relevant prior studies available. FINDINGS: Left deep veins: Axillary and brachial veins are patent throughout without thrombus. Normal compressibility and/or augmentation response. Visualized internal jugular and subclavian veins are patent. Left superficial veins: A PICC line is identified in the left basilic vein with echogenic thrombus. There is occlusion of the left basilic vein. There is flow visualized within the left cephalic vein, with normal compressibility. Soft tissues: Unremarkable. IMPRESSION: 1. A PICC line is identified in the left basilic vein with echogenic thrombus. 2. No DVT involving the left upper extremity, as visualized. Electronically signed by: Albaro Guzman On 02/19/2019 20:26:50 PM
[2019-02-19 20:58] VITALS: BP 121/78
[2019-02-20] MEDS ORDERED: SODIUM CHLORIDE 0.9% INJ 10 ML SYR IV SCH (06:00)
== END 2019-02-19 21:02 | disposition home or self-care (01) ==
LOC: M ED 15:56
DX: T82.868A Thrombosis due to vascular prosthetic devices, implants and grafts, initial encounter (principal); Y92.9 Unspecified place or not applicable; Y93.9 Activity, unspecified; Z79.899 Other long term (current) drug therapy; Z88.0 Allergy status to penicillin; Z88.1 Allergy status to other antibiotic agents
CPT/HCPCS: 80048; 83605; 85025; 87040; 93971; 99284; J2997

== ENCOUNTER → 2019-02-26 | Outpatient (REF) | payer OTHER ==
[~2019-02-26] MED LIST changes: +[UNRECOGNIZED DRUG - CODE] IV
[2019-02-26 19:34] LABS: BASO # 0.1 10^3/uL (0.0-0.2); BASO % 0.9 % (0.0-1.0); EOS # 0.5 10^3/uL (0.0-0.50); EOS % 5.5 % (0.0-3.0); HEMATOCRIT 36.3 % (36.0-47.0); HEMOGLOBIN 11.4 g/dl (12.0-15.5); LYMPH # 2.6 10^3/uL (1.5-6.5); MEAN CORPUSCULAR HEMOGLOBIN 27.3 pg (27.0-33.0); MEAN CORPUSCULAR HGB CONC 31.4 g/dl (32.0-36.5); MEAN CORPUSCULAR VOLUME 86.8 fl (80.0-96.0); MONO # 0.9 10^3/uL (0.0-0.8); MONO % 9.9 % (0.0-5.0); NEUTROPHILS # 4.8 10^3/uL (1.8-7.7); PLATELET COUNT, AUTOMATED 233 10^3/uL (150-450); RED BLOOD COUNT 4.18 10^6/uL (4.00-5.40); WHITE BLOOD COUNT 8.9 10^3/uL (4.0-10.0)
[2019-02-26 19:46] LABS: ALBUMIN 3.3 GM/DL (3.2-5.2); ALT/SGPT 163 U/L (12-78); BILIRUBIN,TOTAL 0.2 MG/DL (0.2-1.0); BLOOD UREA NITROGEN 12 MG/DL (7-18); C REACTIVE PROTEIN QUANTITATIV 0.37 MG/DL (0.00-0.30); CALCIUM LEVEL 8.3 MG/DL (8.5-10.1); CARBON DIOXIDE LEVEL 21 MEQ/L (21-32); CHLORIDE LEVEL 113 MEQ/L (98-107); CREATININE FOR GFR 0.65 MG/DL (0.55-1.30); GLUCOSE, FASTING 69 MG/DL (70-100); POTASSIUM SERUM 3.8 MEQ/L (3.5-5.1); SODIUM LEVEL 142 MEQ/L (136-145); TOTAL PROTEIN 5.9 GM/DL (6.4-8.2)
[2019-02-26 20:33] LABS: ERYTHROCYTE SEDIMENTATION RATE 7 mm/hr (0-20)
== END ==
LOC: M LAB REF 17:08
PROVIDERS: ATTEND Internal Medicine Infectious Disease
DX: G06.2 Extradural and subdural abscess, unspecified (principal)

== ENCOUNTER → 2019-03-08 | Outpatient (REF) | payer OTHER ==
[2019-03-08 11:47] LABS: BASO # 0.1 10^3/uL (0.0-0.2); BASO % 1.2 % (0.0-1.0); EOS # 0.7 10^3/uL (0.0-0.50); EOS % 6.8 % (0.0-3.0); HEMATOCRIT 41.6 % (36.0-47.0); HEMOGLOBIN 13.2 g/dl (12.0-15.5); LYMPH # 2.5 10^3/uL (1.5-6.5); LYMPH % 25.2 % (24.0-44.0); MEAN CORPUSCULAR HGB CONC 31.7 g/dl (32.0-36.5); MEAN CORPUSCULAR VOLUME 85.2 fl (80.0-96.0); MONO # 0.8 10^3/uL (0.0-0.8); MONO % 8.2 % (0.0-5.0); NEUTROPHILS # 5.8 10^3/uL (1.8-7.7); NEUTROPHILS % 58.2 % (36.0-66.0); PLATELET COUNT, AUTOMATED 270 10^3/uL (150-450); RED BLOOD COUNT 4.88 10^6/uL (4.00-5.40)
[2019-03-08 12:27] LABS: ALBUMIN 3.3 GM/DL (3.2-5.2); ALT/SGPT 319 U/L (12-78); BILIRUBIN,TOTAL 0.2 MG/DL (0.2-1.0); BLOOD UREA NITROGEN 10 MG/DL (7-18); CALCIUM LEVEL 8.7 MG/DL (8.5-10.1); CARBON DIOXIDE LEVEL 18 MEQ/L (21-32); CHLORIDE LEVEL 114 MEQ/L (98-107); CREATININE FOR GFR 0.62 MG/DL (0.55-1.30); GLUCOSE, FASTING 91 MG/DL (70-100); POTASSIUM SERUM 3.8 MEQ/L (3.5-5.1); SODIUM LEVEL 140 MEQ/L (136-145); TOTAL PROTEIN 6.2 GM/DL (6.4-8.2)
[2019-03-08 12:55] LABS: ERYTHROCYTE SEDIMENTATION RATE 3 mm/hr (0-20)
== END ==
LOC: M LAB REF 11:09
PROVIDERS: ATTEND Internal Medicine Infectious Disease
DX: G06.2 Extradural and subdural abscess, unspecified (principal); Z79.2 Long term (current) use of antibiotics

== ENCOUNTER 2019-03-13 22:06 | Emergency (ER) | payer OTHER ==
[~2019-03-13] VITALS: Ht 165.1 cm; Wt 109.1 kg
[2019-03-13 22:42] LABS: BASO # 0.1 10^3/uL (0.0-0.2); EOS # 0.4 10^3/uL (0.0-0.50); EOS % 3.5 % (0.0-3.0); HEMATOCRIT 41.3 % (36.0-47.0); HEMOGLOBIN 13.5 g/dl (12.0-15.5); LYMPH # 3.3 10^3/uL (1.5-6.5); LYMPH % 31.4 % (24.0-44.0); MEAN CORPUSCULAR HEMOGLOBIN 27.5 pg (27.0-33.0); MEAN CORPUSCULAR HGB CONC 32.7 g/dl (32.0-36.5); MEAN CORPUSCULAR VOLUME 84.1 fl (80.0-96.0); MONO # 0.8 10^3/uL (0.0-0.8); NEUTROPHILS # 5.8 10^3/uL (1.8-7.7); NEUTROPHILS % 55.6 % (36.0-66.0); PLATELET COUNT, AUTOMATED 311 10^3/uL (150-450); RED BLOOD COUNT 4.91 10^6/uL (4.00-5.40); WHITE BLOOD COUNT 10.4 10^3/uL (4.0-10.0)
[2019-03-13] MEDS ORDERED: KETOROLAC 30 MG/ML VIAL (J1885) IV ONE (22:45)
[2019-03-13 23:02] LABS: HCG, SERUM QUALITATIVE NEGATIVE (NEGATIVE)
[2019-03-13 23:04] LABS: ALBUMIN 3.5 GM/DL (3.2-5.2); ALT/SGPT 130 U/L (12-78); BILIRUBIN,DIRECT 0.1 MG/DL (0.0-0.2); BILIRUBIN,TOTAL 0.2 MG/DL (0.2-1.0); BLOOD UREA NITROGEN 9 MG/DL (7-18); CALCIUM LEVEL 8.9 MG/DL (8.5-10.1); CARBON DIOXIDE LEVEL 17 MEQ/L (21-32); CHLORIDE LEVEL 117 MEQ/L (98-107); CREATININE FOR GFR 0.99 MG/DL (0.55-1.30); GLUCOSE, FASTING 92 MG/DL (70-100); LIPASE 72 U/L (73-393); POTASSIUM SERUM 3.8 MEQ/L (3.5-5.1); SODIUM LEVEL 144 MEQ/L (136-145); TOTAL PROTEIN 6.8 GM/DL (6.4-8.2)
[2019-03-14] MEDS ORDERED: ISOVUE-370 76% 100ML VIAL (Q9967) As Ordered ONE (00:12)
[2019-03-14] MEDS ORDERED: ONDANSETRON 4MG/2ML VIAL (J2405) IV ONE (00:15)
[2019-03-14] MEDS ORDERED: MORPHINE 4 MG/ML 1ML VIAL/SYRINGE (J2270) IV ONE (00:15)
[2019-03-14] MEDS ORDERED: NS 1,000 ML IV ONE (00:15)
[2019-03-14 01:14] VITALS: BP 115/75
--- NOTE | 2019-03-14 01:30 | REPVR ---
EXAM: CT Abdomen and Pelvis With Contrast EXAM DATE/TIME: 03/14/2019 12:05 AM CLINICAL HISTORY: 18 years old, female; Abdominal pain; Flank; Right; Additional info: R back/abd pain, HX of a perforated appendix, epidural abscess TECHNIQUE: Imaging protocol: Axial computed tomography images of the abdomen and pelvis with intravenous contrast. Coronal and sagittal reformatted images were created and reviewed. Radiation optimization: All CT scans at this facility use at least one of these dose optimization techniques: automated exposure control; mA and/or kV adjustment per patient size (includes targeted exams where dose is matched to clinical indication); or iterative reconstruction. Contrast material: ISO; Contrast volume: 100 ml; Contrast route: AC; COMPARISON: MRI-Spine, L.S. without contrast 01/22/2019 9:04:50 AM MRI-LS SPINE W/O FOLL WITH CONTRAST 12/24/2018 3:11:[address] ABD/PEL W/IV CONTRAST ONLY 11/14/2018 9:22 PM FINDINGS: Lungs: The imaged lung bases are clear. Heart: No cardiomegaly. No pericardial effusion. Liver: Unremarkable. No liver lesion is seen. The contour of the liver is smooth. No hepatomegaly is noted. Gallbladder and bile ducts: No calcified gallstones are seen. No gallbladder wall thickening, pericholecystic fluid, or pericholecystic inflammatory changes are identified. No dilation of the intrahepatic or extrahepatic bile ducts is noted. Pancreas: Normal. No ductal dilation. Spleen: Normal. No splenomegaly. Adrenals: Normal. No mass. Kidneys and ureters: No renal lesion is identified. No calculi are seen in the kidneys or ureters. There is mild right hydroureteronephrosis. There is no perinephric fluid collection. Stomach and bowel: There is thickening of the wall of several loops of jejunum in the left upper quadrant of the abdomen. There is no evidence for a bowel obstruction, diverticulosis, diverticulitis, colitis, pneumatosis intestinalis, intussusception, volvulus, or perforated viscus. Appendix: The appendix has been removed since the prior CT scan on 11/14/2018. Intraperitoneal space: Unremarkable. No free air. No fluid collection. Vasculature: The abdominal aorta is patent, normal in caliber, and there is no dissection. The iliac arteries, common femoral arteries, renal arteries, celiac artery, superior mesenteric artery, and inferior mesenteric artery are patent. The renal veins, portal veins, splenic vein, superior mesenteric vein, and inferior mesenteric vein are patent. Lymph nodes: Normal. No enlarged lymph nodes. Bladder: There is a 3 mm calculus in the right posterior aspect of the urinary bladder just distal to the right ureterovesical junction (image 137 of axial series 201). Reproductive: The anteverted uterus and left ovary are unremarkable. There is a 2.7 cm right ovarian cyst with simple characteristics, which likely represents a follicular cyst for which follow-up is not necessary. Incidental note is made of a tampon in the vagina. Bones/joints: There is a laminectomy defect at the L2-L3 level. No acute fracture or bony destructive changes are noted. There is no suspicious osteolytic or osteoblastic lesion. Soft tissues: There is a 1.1 cm x 1.6 cm x 4 cm thick-walled fluid collection in the subcutaneous tissues posteriorly along the midline of the lumbar spine extending from the L1-L2 level to the L3-L4 level that has significantly decreased in size compared to the prior MRI lumbar spine on 01/22/2019. IMPRESSION: 1. 3 mm calculus in the right posterior aspect of the urinary bladder just distal to the right ureterovesical junction and mild right hydroureteronephrosis. 2. 1.1 cm x 1.6 cm x 4 cm thick-walled fluid collection in the subcutaneous tissues posteriorly along the midline of the lumbar spine extending from the L1-L2 level to the L3-L4 level that has significantly decreased in size compared to the prior MRI lumbar spine on 01/22/2019 and may represent an abscess. 3. Thickening of the wall of several loops of jejunum in the left upper quadrant of the abdomen, which may represent a jejunitis. 4. 2.7 cm right ovarian cyst with simple characteristics, which likely represents a follicular cyst for which follow-up is not necessary. Electronically signed by: Wade Velazco On 03/14/2019 01:30:12 AM
--- NOTE | 2019-03-19 15:20 | ED PDOC ---
Post-Departure Follow-Up [facility] faxed formal report of ct abd/p for fu Sincere Kapadia MD Mar 19, 2019 15:20
== END 2019-03-14 02:25 | disposition home or self-care (01) ==
LOC: M ED 22:06
DX: N20.1 Calculus of ureter (principal); N83.201 Unspecified ovarian cyst, right side; G06.1 Intraspinal abscess and granuloma; I10 Essential (primary) hypertension; G93.2 Benign intracranial hypertension; Z88.0 Allergy status to penicillin; Z88.8 Allergy status to other drugs, medicaments and biological substances
CPT/HCPCS: 74177; 80048; 80076; 81001; 83690; 84703; 85025; 87086; 96361; 96374; 96375; 99283; J1885; J2270; J2405; Q9967

== ENCOUNTER 2019-06-10 05:54 | Emergency (ER) | payer OTHER ==
[~2019-06-10] VITALS: Ht 165.1 cm; Wt 109.1 kg
[2019-06-10] MEDS ORDERED: ONDANSETRON 4MG/2ML VIAL (J2405) IV ONE (07:30)
[2019-06-10] MEDS ORDERED: MORPHINE 4 MG/ML 1ML VIAL/SYRINGE (J2270) IV ONE (07:30)
[2019-06-10 08:29] LABS: BASO # 0.1 10^3/uL (0.0-0.2); BASO % 0.6 % (0.0-1.0); EOS # 0.1 10^3/uL (0.0-0.5); EOS % 0.8 % (0.0-3.0); HEMATOCRIT 41.1 % (36.0-47.0); HEMOGLOBIN 13.4 g/dl (12.0-15.5); LYMPH # 1.9 10^3/uL (1.5-5.0); LYMPH % 15.3 % (24.0-44.0); MEAN CORPUSCULAR HEMOGLOBIN 27.5 pg (27.0-33.0); MEAN CORPUSCULAR HGB CONC 32.6 g/dl (32.0-36.5); MEAN CORPUSCULAR VOLUME 84.4 fl (80.0-96.0); MONO # 1.3 10^3/uL (0.0-0.8); MONO % 10.3 % (0.0-5.0); NEUTROPHILS % 72.4 % (36.0-66.0); PLATELET COUNT, AUTOMATED 247 10^3/uL (150-450); RED BLOOD COUNT 4.87 10^6/uL (4.00-5.40); WHITE BLOOD COUNT 12.4 10^3/uL (4.0-10.0)
[2019-06-10] MEDS ORDERED: HYDROMORPHONE HCL 0.5 MG/ 0.5 ML SYRINGE (J1170 PER 1) As Ordered ONE (08:30)
[2019-06-10] MEDS ORDERED: HYDROMORPHONE HCL 0.5 MG/ 0.5 ML SYRINGE (J1170 PER 1) IV ONE (08:30)
[2019-06-10 08:49] LABS: ERYTHROCYTE SEDIMENTATION RATE 6 mm/hr (0-20)
[2019-06-10 08:56] LABS: ALBUMIN 3.8 GM/DL (3.2-5.2); ALT/SGPT 28 U/L (12-78); BILIRUBIN,DIRECT < 0.1 MG/DL (0.0-0.2); BILIRUBIN,TOTAL 0.4 MG/DL (0.2-1.0); BLOOD UREA NITROGEN 6 MG/DL (7-18); C REACTIVE PROTEIN QUANTITATIV 0.58 MG/DL (0.00-0.30); CALCIUM LEVEL 8.8 MG/DL (8.5-10.1); CARBON DIOXIDE LEVEL 25 MEQ/L (21-32); CHLORIDE LEVEL 109 MEQ/L (98-107); CREATININE FOR GFR 0.78 MG/DL (0.55-1.30); GLUCOSE, FASTING 95 MG/DL (70-100); SODIUM LEVEL 142 MEQ/L (136-145)
[2019-06-10] MEDS ORDERED: PROHANCE 279.3MG/ML 5ML VIAL (A9576) As Ordered ONE (09:18)
[2019-06-10] MEDS ORDERED: PROHANCE 279.3MG/ML 15ML VIAL (A9576) As Ordered ONE (09:18)
--- NOTE | 2019-06-10 09:59 | REPVR ---
PROCEDURE INFORMATION: Exam: MR Lumbar Spine Without and With Contrast. Exam date and time: 06/10/2019 9:07 AM Clinical history: 18 years old, female; Other: Ble pain; Prior surgery; Surgery date: 6+ months; Surgery type: Lp shunt removal; Patient HX: PT states ble weakness and a pins and needles feeling, HX of abscess months prior after lp shunt was removed. Priors on pacs; Additional info: HX of lumbar abscess, sudden le pain and weakness. TECHNIQUE: Imaging protocol: Multiplanar magnetic resonance images of the lumbar spine without and with intravenous contrast. Contrast material: PROHANCE; Contrast volume: 20 ml; Contrast route: 20G ANGIO; COMPARISON: MRI-LS SPINE W/O FOLL WITH CON 12/24/2018 3:11 PM FINDINGS: Vertebrae: No visible fracture. Vertebrae are normally aligned. Status post bilateral L3 laminectomies. Spinal epidural space: No epidural abscess or collection. Spinal cord: The conus medullaris terminates at the L1-L2 level and appears normal. T12-L1: No disc herniation or stenosis. L1-L2: No disc herniation or stenosis. L2-L3: No disc herniation or stenosis. L3-L4: No disc herniation or stenosis. L4-L5: No disc herniation or stenosis. L5-S1: No disc herniation or stenosis. Soft tissues: Previously seen posterior soft tissue fluid collection has resolved. There is an area of enhancement measuring approximately 0.8 x 8.1 x 6.0 cm with a smaller area of more superficial STIR hyperintensity in the posterior soft tissues at the surgical site between the L1-L4 levels, the deep margin of which extends to the thecal sac (for example series 701, image 7). No visible abscess. Scarring in the posterior subcutaneous soft tissues. IMPRESSION: Enhancing posterior soft tissue with smaller area of superficial edema in area of prior surgery. Differential possibilities include granulation tissue or cellulitis. No visible abscess. Electronically signed by: Rayshawn Hernandez On 06/10/2019 09:59:19 AM
[2019-06-10] MEDS ORDERED: PERC5TAB12 PO ×2 (10:26→10:27)
[2019-06-10 10:45] VITALS: BP 125/78
--- NOTE | 2019-06-11 19:55 | ED PDOC ---
Post-Departure Follow-Up dr ortega and [facility] faxed formal report of mri with and without contrast Sincere Tatum MD Jun 11, 2019 19:55
== END 2019-06-10 10:51 | disposition home or self-care (01) ==
LOC: M ED 05:54
DX: M54.5 Low back pain (principal); M79.661 Pain in right lower leg; M79.662 Pain in left lower leg; R93.7 Abnormal findings on diagnostic imaging of other parts of musculoskeletal system; R11.0 Nausea; R68.83 Chills (without fever); Z86.19 Personal history of other infectious and parasitic diseases; G93.2 Benign intracranial hypertension; Z88.0 Allergy status to penicillin; Z88.1 Allergy status to other antibiotic agents; Z79.899 Other long term (current) drug therapy
CPT/HCPCS: 36415; 72158; 80048; 80076; 85025; 85652; 86140; 96374; 96375; 99284; A9576; J1170; J2270; J2405

== ENCOUNTER → 2019-12-03 | Outpatient (CLI) | payer OTHER ==
[~2019-12-03] MED LIST changes: +PERC5TAB12 PO
[2019-12-03 17:44] LABS: HEMOGLOBIN A1c 5.3 %
== END ==
LOC: M WUC 12:34
PROVIDERS: ATTEND Physician Assistant
DX: Z86.39 Personal history of other endocrine, nutritional and metabolic disease (principal)

== ENCOUNTER 2020-03-23 15:46 | Emergency (ER) | payer OTHER ==
[~2020-03-23] VITALS: Ht 165.1 cm; Wt 116.6 kg
[2020-03-23 15:46] VITALS: BP 155/101
== END 2020-03-23 16:29 | disposition left against medical advice (07) ==
LOC: M ED 15:46
DX: M79.18 Myalgia, other site (principal); G93.2 Benign intracranial hypertension; Z88.0 Allergy status to penicillin; Z88.1 Allergy status to other antibiotic agents; Z88.8 Allergy status to other drugs, medicaments and biological substances; Z98.2 Presence of cerebrospinal fluid drainage device; Z79.899 Other long term (current) drug therapy

== ENCOUNTER 2020-04-15 00:45 | Emergency (ER) | payer OTHER ==
[2020-05-24 10:59] LABS: BASO # 0.2 10^3/uL (0.0-0.2); BASO % 1.2 % (0.0-1.0); EOS # 1.6 10^3/uL (0.0-0.5); EOS % 11.8 % (0.0-3.0); HEMOGLOBIN 13.6 g/dl (12.0-15.5); LYMPH # 3.8 10^3/uL (1.5-5.0); LYMPH % 27.4 % (24.0-44.0); MEAN CORPUSCULAR HGB CONC 33.2 g/dl (32.0-36.5); MEAN CORPUSCULAR VOLUME 87.4 fl (80.0-96.0); MONO # 1.1 10^3/uL (0.0-0.8); MONO % 8.1 % (0.0-5.0); NEUTROPHILS % 50.9 % (36.0-66.0); PLATELET COUNT, AUTOMATED 243 10^3/uL (150-450); RED BLOOD COUNT 4.69 10^6/uL (4.00-5.40); WHITE BLOOD COUNT 13.8 10^3/uL (4.0-10.0)
[2020-06-29 07:18] LABS: BLOOD UREA NITROGEN 14 MG/DL (7-18); CARBON DIOXIDE LEVEL 26 MEQ/L (21-32); CHLORIDE LEVEL 109 MEQ/L (98-107); CREATININE FOR GFR 0.88 MG/DL (0.55-1.30); GLOMERULAR FILTRATION RATE > 60.0 (>60); GLUCOSE, FASTING 87 MG/DL (70-100); POTASSIUM SERUM 3.9 MEQ/L (3.5-5.1); SODIUM LEVEL 139 MEQ/L (136-145)
== END 2020-04-15 03:27 | disposition left against medical advice (07) ==
LOC: M ED 00:45
DX: R51 Headache (principal); G93.2 Benign intracranial hypertension; Z79.899 Other long term (current) drug therapy; Z88.0 Allergy status to penicillin; Z88.8 Allergy status to other drugs, medicaments and biological substances

== ENCOUNTER → 2020-06-06 | Outpatient (CLI) | payer OTHER ==
--- NOTE | 2020-06-19 11:57 | REP ---
PELVIC ULTRASOUND CLINICAL: Pelvic and perineal pain. TECHNIQUE: Transabdominal pelvic ultrasound followed by transvaginal examination for better evaluation of the endometrium and adnexa with color Doppler evaluation of the ovaries. FINDINGS: Bladder is normal and measures 6.3 x 4.4 x 4.0 cm. Heterogeneous retroverted uterus measures 7.6 x 4.2 x 4.9 cm. The endometrial complex measures 7.3 mm in thickness. No discrete uterine or endometrial abnormalities are identified. The left ovary is normal in appearance and vascularity without torsion and measures 4.2 x 2.9 x 2.2 cm (RI 0.63). Right ovary measures 6.6 x 4.6 x 4.7 cm (RI 0.47) and includes a 4.8 x 3.8 x 3.9 cm simple cyst. Small amount of pelvic free fluid noted. IMPRESSION: * A 4.8 cm likely physiologic right ovarian cyst and small amount of pelvic free fluid. Consider follow-up examination in four to six weeks to evaluate for resolution if symptoms persist. * Normal uterus and left ovary. MTDD
== END ==
LOC: M RAD 10:01
PROVIDERS: ATTEND Obstetrics & Gynecology
DX: N83.201 Unspecified ovarian cyst, right side (principal)

== ENCOUNTER → 2020-09-14 | Outpatient (REF) | payer OTHER | LOC: M LAB REF 17:15 | PROVIDERS: ATTEND Physician Assistant Medical | DX: J02.9 Acute pharyngitis, unspecified (principal) ==

== ENCOUNTER → 2020-10-27 | Outpatient (CLI) | payer OTHER ==
[~2020-10-27] MED LIST changes: -DICY20TA PO; +DICY20TA3 PO; +LISI10TA22; +LISI10TA22 PO; -LISI10TA4; -LISI10TA4 PO
--- NOTE | 2020-10-27 13:08 | REP ---
INDICATION: COUGH COMPARISON: 03/18/2016 TECHNIQUE: PA and lateral. FINDINGS: The mediastinum and cardiac silhouette are normal. The lung harrington are clear and without acute consolidation, effusion, or pneumothorax. The skeletal structures are intact and normal. IMPRESSION: No acute cardiopulmonary process. <Electronically signed by Alfred Ibarra > 10/27/20 [id number]
[2020-10-27 16:37] LABS: BASO # 0.1 10^3/uL (0.0-0.2); BASO % 1.1 % (0.0-1.0); EOS % 8.4 % (0.0-3.0); HEMATOCRIT 45.7 % (36.0-47.0); HEMOGLOBIN 14.9 g/dl (12.0-15.5); LYMPH # 2.9 10^3/uL (1.5-5.0); LYMPH % 24.7 % (24.0-44.0); MEAN CORPUSCULAR HEMOGLOBIN 28.8 pg (27.0-33.0); MEAN CORPUSCULAR HGB CONC 32.6 g/dl (32.0-36.5); MEAN CORPUSCULAR VOLUME 88.2 fl (80.0-96.0); MONO # 0.9 10^3/uL (0.0-0.8); MONO % 7.1 % (0.0-5.0); NEUTROPHILS # 6.9 10^3/uL (1.5-8.5); NEUTROPHILS % 58.2 % (36.0-66.0); PLATELET COUNT, AUTOMATED 276 10^3/uL (150-450); RED BLOOD COUNT 5.18 10^6/uL (4.00-5.40); WHITE BLOOD COUNT 11.9 10^3/uL (4.0-10.0)
[2020-10-27 17:07] LABS: HCG, SERUM QUALITATIVE NEGATIVE (NEGATIVE)
[2020-10-27 17:09] LABS: ALT/SGPT 35 U/L (12-78); BILIRUBIN,TOTAL 0.3 MG/DL (0.2-1.0); BLOOD UREA NITROGEN 12 MG/DL (7-18); CALCIUM LEVEL 9.2 MG/DL (8.5-10.1); CARBON DIOXIDE LEVEL 28 MEQ/L (21-32); CHLORIDE LEVEL 106 MEQ/L (98-107); CHOLESTEROL LEVEL 185 MG/DL (<200); CHOLESTEROL RISK RATIO 3.245 (<5); CREATININE FOR GFR 0.71 MG/DL (0.55-1.30); FREE T4 0.97 NG/DL (0.76-1.46); GLOMERULAR FILTRATION RATE > 60.0 (>60); GLUCOSE, FASTING 80 MG/DL (70-100); HDL CHOLESTEROL 57 MG/DL (>40); LDL CHOLESTEROL 106 MG/DL (<100); NON-HDL-C 128 MG/DL; POTASSIUM SERUM 4.5 MEQ/L (3.5-5.1); SODIUM LEVEL 139 MEQ/L (136-145); THYROID STIMULATING HORMONE 0.527 uIU/ML (0.358-3.740); TOTAL PROTEIN 7.2 GM/DL (6.4-8.2); TRIGLYCERIDES LEVEL 108 MG/DL (<150)
[2020-10-27 17:12] LABS: TOTAL 25(OH) VITAMIN D 12.5 NG/ML (30.0-100.0)
[2020-10-27 20:15] LABS: HEMOGLOBIN A1c 4.8 %
== END ==
LOC: M WUC 11:15
PROVIDERS: ATTEND Physician Assistant
DX: R05 Cough (principal); E66.9 Obesity, unspecified

== ENCOUNTER → 2021-01-25 | Outpatient (CLI) | payer OTHER ==
--- NOTE | 2021-01-26 17:10 | SLEEPCENT ---
NOCTURNAL POLYSOMNOGRAPHY DATE: 01/25/2021 ORDERED BY: INA Barnes Nocturnal polysomnography was performed for evaluation of sleep physiology in this patient with a history of excessive somnolence and nonrestorative sleep. 7 hours and 35 minutes of data were reviewed. There were 402 minutes of sleep identified. Sleep latency was normal at 14 minutes. REM sleep was delayed at 107 minutes Sleep architecture improved substantially after interventions were made and there were three REM cycles noted. Overall sleep efficiency was 89.2%. The electrocardiogram showed a sinus rhythm with an average heart rate of 76 beats per minute. EEG showed normal waveforms for wake and sleep. There were 271 respiratory events identified of 10 seconds in duration or greater for an apnea-hypopnea index of 40.4. The events were obstructive associated with desaturations into the 70s and having clearly established the presence of obstructive sleep apnea, testing was stopped shortly after midnight for the application of pressure therapy. The patient was then fit with a Respironics FX nasal mask of standard size, 4 cm of water pressure were applied to the circuit and the lights were extinguished. Over the remaining hours of testing, pressure titration was performed to an optimal pressure of +9 with which, the patient slept through REM without respiratory events or oxygen desaturation. IMPRESSION: Severe obstructive sleep apnea syndrome (G47.33), apnea-hypopnea index 40.4. RECOMMENDATION: Nightly use of pressure therapy 9 cm of water.
== END ==
LOC: M SLEEP 20:00
PROVIDERS: ATTEND Physician Assistant
DX: G47.33 Obstructive sleep apnea (adult) (pediatric) (principal)

== ENCOUNTER → 2022-02-25 | Outpatient (CLI) | payer MEDICAID ==
[~2022-02-25] MED LIST changes: -DICY20TA11 PO; +DICY20TA20 PO; +TIZA10TA PO; -TIZA4TAB4 PO
== END ==
LOC: M RAD 15:05
PROVIDERS: ATTEND Psychiatry & Neurology Neurology
DX: G93.2 Benign intracranial hypertension (principal); G44.229 Chronic tension-type headache, not intractable; G43.109 Migraine with aura, not intractable, without status migrainosus

== ENCOUNTER 2022-05-18 00:13 | Emergency (ER) | payer MEDICAID ==
[~2022-05-18] VITALS: Ht 165.1 cm; Wt 108.2 kg
[2022-05-18 01:32] VITALS: BP 140/78
== END 2022-05-18 01:28 | disposition left against medical advice (07) ==
LOC: M ED 00:13
DX: Z53.21 Procedure and treatment not carried out due to patient leaving prior to being seen by health care provider (principal)

== ENCOUNTER → 2023-02-15 | Outpatient (REF) | payer OTHER ==
[2023-02-15 21:18] LABS: GC DNA AMPLIFICATION NEGATIVE (NEGATIVE)
== END ==
LOC: M LAB REF 18:55
PROVIDERS: ATTEND Physician Assistant
DX: R30.0 Dysuria (principal)

== ENCOUNTER → 2023-07-20 | Outpatient (REF) | payer OTHER | LOC: M LAB REF 16:28 | PROVIDERS: ATTEND Nurse Practitioner Family | DX: Z79.899 Other long term (current) drug therapy (principal) ==

== ENCOUNTER → 2023-11-21 | Outpatient (CLI) | payer BC, OTHER ==
[2023-11-21 17:19] LABS: HEMATOCRIT 35.2 % (36.0-47.0); HEMOGLOBIN 11.5 g/dl (12.0-15.5); MEAN CORPUSCULAR HEMOGLOBIN 27.8 pg (27.0-33.0); MEAN CORPUSCULAR HGB CONC 32.7 g/dl (32.0-36.5); MEAN CORPUSCULAR VOLUME 85.2 fl (80.0-96.0); PLATELET COUNT, AUTOMATED 234 10^3/uL (150-450); RED BLOOD COUNT 4.13 10^6/uL (4.00-5.40); WHITE BLOOD COUNT 7.7 10^3/uL (4.0-10.0)
[2023-11-21 17:31] LABS: IRON (FE) 23 UG/DL (50-170); PERCENT SATURATION 7.3 % (13.2-45.0); TOTAL IRON BINDING CAPACITY 314 UG/DL (250-425)
[2023-11-21 17:32] LABS: ALBUMIN 3.7 G/DL (3.2-5.2); ALKALINE PHOSPHATASE 68 U/L (46-116); ALT/SGPT 24 U/L (7.0-40); AST/SGOT 22 U/L (<34); BILIRUBIN,TOTAL 0.4 MG/DL (0.3-1.2); BLOOD UREA NITROGEN 16 MG/DL (9-23); CALCIUM LEVEL 8.4 MG/DL (8.5-10.1); CARBON DIOXIDE LEVEL 28 MMOL/L (20-31); CHLORIDE LEVEL 109 MMOL/L (98-107); CREATININE FOR GFR 0.75 MG/DL (0.55-1.30); GLOMERULAR FILTRATION RATE > 60.0 (>60); GLUCOSE, FASTING 82 MG/DL (60-100); POTASSIUM SERUM 4.3 MMOL/L (3.5-5.1); SODIUM LEVEL 139 MMOL/L (136-145); TOTAL PROTEIN 5.9 G/DL (5.7-8.2)
[2023-11-21 17:35] LABS: FERRITIN 7.5 NG/ML (7.3-270.7); TOTAL 25(OH) VITAMIN D 42.1 NG/ML (20.0-100.0)
== END ==
LOC: M LAB 15:54
PROVIDERS: ATTEND Physician Assistant
DX: E55.9 Vitamin D deficiency, unspecified (principal)

== ENCOUNTER → 2024-07-24 | Outpatient (REF) | payer BC, OTHER ==
[2024-07-24 18:51] LABS: PERCENT SATURATION 13.7 % (13.2-45.0); PHOSPHORUS LEVEL 3.9 MG/DL (2.5-4.9)
[2024-07-24 18:54] LABS: FERRITIN 14.2 NG/ML (7.3-270.7)
[2024-07-24 18:59] LABS: FOLATE 23.8 NG/ML (>5.4)
== END ==
LOC: M LAB REF 17:37
PROVIDERS: ATTEND Nurse Practitioner Family
DX: Z98.84 Bariatric surgery status (principal)

== ENCOUNTER 2024-12-22 09:02 | Emergency (ER) | payer BC, OTHER ==
[~2024-12-22] VITALS: Ht 165.1 cm; Wt 81.1 kg
[2024-12-22] MEDS ORDERED: HYDR-3363 (09:12)
[2024-12-22] MEDS ORDERED: SPIR-10 PO (09:12)
[2024-12-22] MEDS ORDERED: ALPR0.25 (09:12)
[2024-12-22] MEDS ORDERED: YAZ1TAB PO (09:12)
[2024-12-22] MEDS ORDERED: FLUO1TAB PO (09:12)
[2024-12-22 10:02] LABS: BASO % 0.2 % (0.0-1.0); EOS % 0.2 % (0.0-3.0); HEMATOCRIT 39.2 % (36.0-47.0); LYMPH # 1.2 10^3/uL (1.5-5.0); LYMPH % 6.1 % (24.0-44.0); MEAN CORPUSCULAR HEMOGLOBIN 28.6 pg (27.0-33.0); MEAN CORPUSCULAR HGB CONC 33.2 g/dl (32.0-36.5); MEAN CORPUSCULAR VOLUME 86.3 fl (80.0-96.0); MONO # 1.3 10^3/uL (0.0-0.8); MONO % 6.4 % (2.0-8.0); NEUTROPHILS % 86.5 % (36.0-66.0); PLATELET COUNT, AUTOMATED 263 10^3/uL (150-450); RED BLOOD COUNT 4.54 10^6/uL (4.00-5.40); WHITE BLOOD COUNT 19.6 10^3/uL (4.0-10.0)
[2024-12-22 10:14] LABS: KETONE, URINE AUTO RFX NEGATIVE (NEGATIVE); MUCUS, URINE RFX SMALL (NEGATIVE); NITRITE, URINE AUTO RFX NEGATIVE (NEGATIVE); RBC, URINE AUTO RFX 2 /HPF (0-3); SQUAM EPITHELIAL CELL UR AURFX 5 /HPF (0-6); WBC, URINE AUTO RFX 2 /HPF (0-3)
[2024-12-22 10:25] LABS: ERYTHROCYTE SEDIMENTATION RATE 9 mm/hr (0-20)
[2024-12-22 10:30] LABS: LIPASE 20 U/L (12-53)
[2024-12-22 10:32] LABS: ALBUMIN 3.3 G/DL (3.2-5.2); ALKALINE PHOSPHATASE 84 U/L (35-104); ALT/SGPT 13 U/L (7.0-40); AST/SGOT 14 U/L (<34); BILIRUBIN,DIRECT 0.4 MG/DL (<0.4); BLOOD UREA NITROGEN 17 MG/DL (9-23); CALCIUM LEVEL 8.6 MG/DL (8.5-10.1); CARBON DIOXIDE LEVEL 25 MMOL/L (20-31); CHLORIDE LEVEL 104 MMOL/L (98-107); CREATININE FOR GFR 0.65 MG/DL (0.55-1.30); GLOMERULAR FILTRATION RATE > 60.0 (>60); GLUCOSE, FASTING 110 MG/DL (60-100); POTASSIUM SERUM 3.9 MMOL/L (3.5-5.1); SODIUM LEVEL 138 MMOL/L (136-145); TOTAL PROTEIN 6.3 G/DL (5.7-8.2)
[2024-12-22 10:34] LABS: LEUKOCYTE ESTERASE UR AUTO RFX TRACE (NEGATIVE)
[2024-12-22] MEDS: KETOROLAC 30 MG/ML 1ML VIAL IV ONE (10:40)
[2024-12-22] MEDS: ONDANSETRON 4MG 2ML VIAL IV ONE (10:40)
[2024-12-22 11:08] LABS: C REACTIVE PROTEIN QUANTITATIV 12.99 MG/DL (<1.0)
[2024-12-22] MEDS: GASTROGRAFIN SOLUTION 30ML PO SCH (11:28)
[2024-12-22] MEDS ORDERED: ISOVUE-370 76% 100ML VIAL As Ordered ONE (12:46)
[2024-12-22] MEDS: MORPHINE 4 MG/ML 1ML VIAL IV ONE (12:58)
[2024-12-22] MEDS: metroNIDAZOLE 500 MG in IV 1 EA IV ONE (14:40)
[2024-12-22] MEDS: LevoFLOXacin IV 750 MG in IV 1 EA IV ONE (15:21)
[2024-12-22 15:30] VITALS: BP 123/77; TEMP 97.7; O2SAT 98
== END 2024-12-22 15:34 | disposition short-term general hospital (02) ==
LOC: M ED 09:02
DX: K66.8 Other specified disorders of peritoneum (principal); Z88.1 Allergy status to other antibiotic agents; F17.290 Nicotine dependence, other tobacco product, uncomplicated; F12.10 Cannabis abuse, uncomplicated; F10.10 Alcohol abuse, uncomplicated; Z79.899 Other long term (current) drug therapy
CPT/HCPCS: 74177; 80047; 80048; 80076; 81001; 83605; 83690; 84702; 85025; 85652; 86140; 87040; 87086; 96365; 96375; 99285; J1836; J1885; J1956; J2405; Q9963; Q9967